=== PATIENT | female | born 2000 | race Two or more races ===

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

== ENCOUNTER → 2018-02-06 | Emergency (ER) | END | disposition home or self-care (01) ==

== ENCOUNTER 2018-03-22 05:54 | Day surgery (SDC) | END 2018-03-22 10:10 | disposition home or self-care (01) ==